=== PATIENT | female | born 1965 | race Caucasian/White ===

== ENCOUNTER 2021-02-23 10:52 | Inpatient (IN) | payer OTHER ==
[2021-02-23 11:45] VITALS: BMI 23.8
[2021-02-23] MEDS ORDERED: NICOTINE POLACRILEX 2 MG GUM BUC PRN (12:05)
[2021-02-23] MEDS ORDERED: MAGNESIUM CITRATE 300 ML BOTTLE PO PRN (12:05)
[2021-02-23] MEDS ORDERED: MAGNESIUM HYDROX 2400MG/30ML ORAL SUSPENSION 30 ML CUP PO PRN (12:05)
[2021-02-23] MEDS ORDERED: MAG HYDROX/AL HYDROX/SIMETH 30 ML UNIT-DOSE CUP PO PRN (12:05)
[2021-02-23] MEDS ORDERED: ONDANSETRON *ODT* 4 MG TABLET SL PRN (12:05)
[2021-02-23] MEDS ORDERED: ACETAMINOPHEN 325 MG TABLET (FP) PO PRN (12:05)
[2021-02-23] MEDS ORDERED: MENTHOL/PHENOL 1 EACH UD MM PRN (12:05)
[2021-02-23] MEDS ORDERED: BISMUTH SUBSALICYLATE 262 MG/15 ML BTL PO PRN (12:05)
[2021-02-23] MEDS: METHOCARBAMOL 500 MG TABLET PO PRN (14:25)
[2021-02-23] MEDS: diazePAM 5 MG TABLET PO SCH ×3 (14:25→22:12)
[2021-02-23] MEDS: PRENATAL VITAMINS W/ FOLIC ACID TABLET (FP) PO SCH (14:26)
[2021-02-23] MEDS: hydrOXYzine PAMOATE 25 MG CAPSULE (FP) PO SCH ×3 (14:26→22:12)
[2021-02-23] MEDS: NICOTINE 7 MG/24 HOURS TOPICAL PATCH TD SCH (14:26)
[2021-02-23] MEDS: ALBUTEROL SO4 HFA INHALER IH SCH ×3 (14:55→22:13)
[2021-02-23 15:46] LABS: HEMATOCRIT 27.6 % (32.4-45.2); HEMOGLOBIN 10.4 GM/dL (10.7-15.3); MCH 35.2 pg (25.7-33.7); MCHC 37.6 g/dl (32.0-36.0); MEAN CELL VOLUME 93.7 fl (80-96); MEAN PLT VOLUME 9.4 fl (7.5-11.1); PLATELET COUNT 217 10^3/uL (134-434); RBC 2.95 M/mm3 (3.60-5.2); RDW 16.5 % (11.6-15.6)
[2021-02-23 15:51] LABS: CALCIUM 8.2 mg/dL (8.5-10.1)
[2021-02-23 15:52] LABS: ALBUMIN 3.2 g/dl (3.4-5.0)
[2021-02-23 15:56] LABS: BILIRUBIN,TOTAL 1.6 mg/dL (0.2-1); CREATININE 1.2 mg/dL (0.55-1.3)
[2021-02-23 16:45] LABS: HIV INTERPRETATION NEGATIVE (NEGATIVE)
[2021-02-23 17:00] LABS: BLOOD UREA NITROGEN 41.9 mg/dL (7-18); TOT PROT 6.9 g/dl (6.4-8.2)
[2021-02-23] MEDS: IBUPROFEN 400 MG TABLET (FP) PO PRN (17:50)
[2021-02-23] MEDS: GABAPENTIN 300 MG CAPSULE PO SCH (22:12)
[2021-02-23] MEDS: THIAMINE HCL 100 MG TABLET (FP) PO SCH (22:12)
[2021-02-23] MEDS: ROSUVASTATIN CA 5 MG TABLET (FP) PO SCH (22:12)
[2021-02-23] MEDS: MELATONIN 5 MG TABLETS PO SCH (22:13)
[2021-02-24] MEDS: ALBUTEROL SO4 HFA INHALER IH SCH ×6 (04:13→21:44)
[2021-02-24] MEDS: IBUPROFEN 400 MG TABLET (FP) PO PRN ×2 (04:17→16:48)
[2021-02-24] MEDS: diazePAM 5 MG TABLET PO SCH ×4 (06:20→23:19)
[2021-02-24] MEDS: hydrOXYzine PAMOATE 25 MG CAPSULE (FP) PO SCH ×5 (06:20→21:43)
[2021-02-24] MEDS: CHLORTHALIDONE 25 MG TABLET PO SCH (08:23)
[2021-02-24] MEDS: LOSARTAN POTASSIUM 50 MG TABLET PO SCH (08:23)
[2021-02-24] MEDS ORDERED: METHADONE HCL 10 MG TABLET PO SCH (08:30)
[2021-02-24] MEDS ORDERED: METHADONE 80 MG, METHADONE 10 MG PO ONE (08:30)
[2021-02-24] MEDS ORDERED: METHADONE HCL 40 MG DISPERSABLE TABLET ONE (08:41)
[2021-02-24] MEDS ORDERED: METHADONE HCL 10 MG TABLET ONE (08:41)
[2021-02-24] MEDS: NICOTINE 7 MG/24 HOURS TOPICAL PATCH TD SCH (10:14)
[2021-02-24] MEDS: GABAPENTIN 300 MG CAPSULE PO SCH ×2 (10:14→21:43)
[2021-02-24] MEDS: PRENATAL VITAMINS W/ FOLIC ACID TABLET (FP) PO SCH (10:14)
[2021-02-24] MEDS: diazePAM 5 MG TABLET PO PRN (14:18)
[2021-02-24] MEDS: ASPIRIN 81 MG CHEWABLE TABLETS PO SCH (14:47)
[2021-02-24] MEDS: ROSUVASTATIN CA 5 MG TABLET (FP) PO SCH (21:43)
[2021-02-24] MEDS: THIAMINE HCL 100 MG TABLET (FP) PO SCH (21:43)
[2021-02-24] MEDS: MELATONIN 5 MG TABLETS PO SCH (21:43)
[2021-02-25] MEDS ORDERED: METHADONE HCL 40 MG DISPERSABLE TABLET ONE (04:13)
[2021-02-25] MEDS ORDERED: METHADONE HCL 10 MG TABLET ONE (04:13)
[2021-02-25] MEDS: ALBUTEROL SO4 HFA INHALER IH SCH ×6 (04:27→23:50)
[2021-02-25] MEDS: METHADONE 80 MG, METHADONE 10 MG PO SCH (05:51)
[2021-02-25] MEDS: diazePAM 5 MG TABLET PO SCH ×3 (05:52→22:24)
[2021-02-25] MEDS: hydrOXYzine PAMOATE 25 MG CAPSULE (FP) PO SCH ×5 (05:53→22:24)
[2021-02-25] MEDS: LOSARTAN POTASSIUM 50 MG TABLET PO SCH (06:41)
[2021-02-25] MEDS: CHLORTHALIDONE 25 MG TABLET PO SCH (06:42)
[2021-02-25] MEDS: PRENATAL VITAMINS W/ FOLIC ACID TABLET (FP) PO SCH (10:33)
[2021-02-25] MEDS: ASPIRIN 81 MG CHEWABLE TABLETS PO SCH (10:33)
[2021-02-25] MEDS: GABAPENTIN 300 MG CAPSULE PO SCH ×2 (10:33→22:24)
[2021-02-25] MEDS: NICOTINE 7 MG/24 HOURS TOPICAL PATCH TD SCH (10:33)
[2021-02-25] MEDS: diazePAM 5 MG TABLET PO PRN ×2 (10:36→17:43)
[2021-02-25 10:59] LABS: IRON SERUM 71 ug/dL (50-175)
[2021-02-25 11:04] LABS: BASO % 1.1 % (0-2.0); EOS % 0.9 % (0-4.5); HEMATOCRIT 28.4 % (32.4-45.2); HEMOGLOBIN 9.6 GM/dL (10.7-15.3); LYMPH % 40.9 % (8-40); MCH 32.2 pg (25.7-33.7); MCHC 33.9 g/dl (32.0-36.0); MEAN CELL VOLUME 94.9 fl (80-96); MEAN PLT VOLUME 9.6 fl (7.5-11.1); MONO % 6.2 % (3.8-10.2); NEUT % 50.9 % (42.8-82.8); PLATELET COUNT 235 10^3/uL (134-434); RBC 2.99 M/mm3 (3.60-5.2); RDW 16.8 % (11.6-15.6); WHITE BLOOD COUNT 7.2 K/mm3 (4.0-10.0)
[2021-02-25] MEDS: METHOCARBAMOL 500 MG TABLET PO PRN (11:50)
[2021-02-25] MEDS: IBUPROFEN 400 MG TABLET (FP) PO PRN (11:50)
[2021-02-25] MEDS: ACETAMINOPHEN 325 MG TABLET (FP) PO PRN (17:49)
[2021-02-25] MEDS: MELATONIN 5 MG TABLETS PO SCH (22:24)
[2021-02-25] MEDS: THIAMINE HCL 100 MG TABLET (FP) PO SCH (22:24)
[2021-02-25] MEDS: ROSUVASTATIN CA 5 MG TABLET (FP) PO SCH (22:24)
[2021-02-26] MEDS ORDERED: METHADONE HCL 10 MG TABLET ONE (03:11)
[2021-02-26] MEDS ORDERED: METHADONE HCL 40 MG DISPERSABLE TABLET ONE (03:11)
[2021-02-26] MEDS: ALBUTEROL SO4 HFA INHALER IH SCH ×6 (04:35→22:12)
[2021-02-26] MEDS: METHADONE 80 MG, METHADONE 10 MG PO SCH (05:39)
[2021-02-26] MEDS: diazePAM 5 MG TABLET PO SCH ×2 (05:39→17:30)
[2021-02-26] MEDS: hydrOXYzine PAMOATE 25 MG CAPSULE (FP) PO SCH ×5 (05:40→22:11)
[2021-02-26] MEDS: CHLORTHALIDONE 25 MG TABLET PO SCH (06:26)
[2021-02-26] MEDS: LOSARTAN POTASSIUM 50 MG TABLET PO SCH (06:26)
[2021-02-26 09:27] LABS: EOS % 0.4 % (0-4.5); HEMATOCRIT 26.1 % (32.4-45.2); LYMPH % 35.1 % (8-40); MCH 32.5 pg (25.7-33.7); MCHC 34.4 g/dl (32.0-36.0); MEAN CELL VOLUME 94.7 fl (80-96); MEAN PLT VOLUME 8.8 fl (7.5-11.1); MONO % 5.7 % (3.8-10.2); NEUT % 57.8 % (42.8-82.8); PLATELET COUNT 228 10^3/uL (134-434); RBC 2.76 M/mm3 (3.60-5.2); RDW 16.7 % (11.6-15.6); WHITE BLOOD COUNT 6.4 K/mm3 (4.0-10.0)
[2021-02-26] MEDS: ASPIRIN 81 MG CHEWABLE TABLETS PO SCH (09:37)
[2021-02-26] MEDS: PRENATAL VITAMINS W/ FOLIC ACID TABLET (FP) PO SCH (09:37)
[2021-02-26] MEDS: diazePAM 5 MG TABLET PO PRN (09:37)
[2021-02-26] MEDS: GABAPENTIN 300 MG CAPSULE PO SCH ×2 (09:37→22:11)
[2021-02-26 09:52] LABS: CREATININE 1.2 mg/dL (0.55-1.3)
[2021-02-26 09:54] LABS: TOT PROT 6.6 g/dl (6.4-8.2)
[2021-02-26 09:55] LABS: BILIRUBIN,TOTAL 0.8 mg/dL (0.2-1)
[2021-02-26 09:57] LABS: BLOOD UREA NITROGEN 16.7 mg/dL (7-18)
[2021-02-26] MEDS: NICOTINE 7 MG/24 HOURS TOPICAL PATCH TD SCH (10:29)
[2021-02-26 11:02] LABS: ANISOCYTOSIS 1+; PLATELET ESTIMATE NORMAL; TARGET CELLS 1+
[2021-02-26] MEDS: MELATONIN 5 MG TABLETS PO SCH (22:11)
[2021-02-26] MEDS: ROSUVASTATIN CA 5 MG TABLET (FP) PO SCH (22:11)
[2021-02-26] MEDS: THIAMINE HCL 100 MG TABLET (FP) PO SCH (22:11)
[2021-02-27] MEDS: ALBUTEROL SO4 HFA INHALER IH SCH ×3 (02:35→09:35)
[2021-02-27] MEDS: ACETAMINOPHEN 325 MG TABLET (FP) PO PRN (02:54)
[2021-02-27] MEDS ORDERED: METHADONE HCL 10 MG TABLET ONE (04:09)
[2021-02-27] MEDS ORDERED: METHADONE HCL 40 MG DISPERSABLE TABLET ONE (04:10)
[2021-02-27] MEDS: METHADONE 80 MG, METHADONE 10 MG PO SCH (05:47)
[2021-02-27] MEDS: hydrOXYzine PAMOATE 25 MG CAPSULE (FP) PO SCH ×2 (05:47→09:35)
[2021-02-27] MEDS ORDERED: diazePAM 5 MG TABLET PO ONE (06:00)
[2021-02-27] MEDS: CHLORTHALIDONE 25 MG TABLET PO SCH (08:00)
[2021-02-27] MEDS: LOSARTAN POTASSIUM 50 MG TABLET PO SCH (08:00)
[2021-02-27 09:22] VITALS: BP 120/93; PULSE 110; TEMP 97.9
[2021-02-27] MEDS: PRENATAL VITAMINS W/ FOLIC ACID TABLET (FP) PO SCH (09:34)
[2021-02-27] MEDS: ASPIRIN 81 MG CHEWABLE TABLETS PO SCH (09:34)
[2021-02-27] MEDS: NICOTINE 7 MG/24 HOURS TOPICAL PATCH TD SCH (09:35)
[2021-02-27] MEDS: GABAPENTIN 300 MG CAPSULE PO SCH (09:35)
== END 2021-02-27 10:07 | disposition home or self-care (01) | DRG 773 ==
LOC: YASAS 10:52 → Y6N 12:45
PROVIDERS: ADMIT Allergy & Immunology; ATTEND Allergy & Immunology
PROC: HZ2ZZZZ Detoxification Services for Substance Abuse Treatment (ICD-10-PCS; principal; 2021-02-23)
DX: F10.230 Alcohol dependence with withdrawal, uncomplicated (principal); F13.230 Sedative, hypnotic or anxiolytic dependence with withdrawal, uncomplicated; F11.20 Opioid dependence, uncomplicated; F17.210 Nicotine dependence, cigarettes, uncomplicated; F19.280 Other psychoactive substance dependence with psychoactive substance-induced anxiety disorder; F19.282 Other psychoactive substance dependence with psychoactive substance-induced sleep disorder; F32.9 Major depressive disorder, single episode, unspecified; D50.9 Iron deficiency anemia, unspecified; J45.909 Unspecified asthma, uncomplicated; J42 Unspecified chronic bronchitis; E80.6 Other disorders of bilirubin metabolism; L03.116 Cellulitis of left lower limb; R74.8 Abnormal levels of other serum enzymes; R78.9 Finding of unspecified substance, not normally found in blood; B18.2 Chronic viral hepatitis C
CPT/HCPCS: 36415; 71046-TC-FY; 80053; 82607; 82962; 83540; 85025; 85027; 86780; 87389; 93005; 93010; C9803; U0003; U0005

== ENCOUNTER 2021-03-16 10:01 | Inpatient (IN) | payer OTHER ==
[2021-03-16 11:42] VITALS: BMI 24.1
[2021-03-16] MEDS ORDERED: MENTHOL/PHENOL 1 EACH UD MM PRN (12:04)
[2021-03-16] MEDS ORDERED: MAGNESIUM HYDROX 2400MG/30ML ORAL SUSPENSION 30 ML CUP PO PRN (12:04)
[2021-03-16] MEDS ORDERED: ONDANSETRON *ODT* 4 MG TABLET SL PRN (12:04)
[2021-03-16] MEDS ORDERED: BISMUTH SUBSALICYLATE 262 MG/15 ML BTL PO PRN (12:04)
[2021-03-16] MEDS ORDERED: MAGNESIUM CITRATE 300 ML BOTTLE PO PRN (12:04)
[2021-03-16] MEDS ORDERED: NICOTINE POLACRILEX 2 MG GUM BUC PRN (12:04)
[2021-03-16] MEDS ORDERED: MAG HYDROX/AL HYDROX/SIMETH 30 ML UNIT-DOSE CUP PO PRN (12:04)
[2021-03-16] MEDS ORDERED: ACETAMINOPHEN 325 MG TABLET (FP) PO PRN ×2 (12:04)
[2021-03-16] MEDS ORDERED: hydrOXYzine PAMOATE 25 MG CAPSULE (FP) PO SCH (14:00)
[2021-03-16] MEDS: ALBUTEROL SO4 HFA INHALER IH SCH ×3 (14:38→22:30)
[2021-03-16] MEDS: LORazepam 1 MG TABLET PO PRN ×2 (14:38→20:55)
[2021-03-16] MEDS: NICOTINE 7 MG/24 HOURS TOPICAL PATCH TD SCH (14:38)
[2021-03-16 17:10] LABS: HEMATOCRIT 28.4 % (32.4-45.2); HEMOGLOBIN 9.6 GM/dL (10.7-15.3); MCH 32.7 pg (25.7-33.7); MCHC 33.9 g/dl (32.0-36.0); MEAN CELL VOLUME 96.4 fl (80-96); MEAN PLT VOLUME 8.5 fl (7.5-11.1); PLATELET COUNT 212 10^3/uL (134-434); RBC 2.94 M/mm3 (3.60-5.2); RDW 17.8 % (11.6-15.6); WHITE BLOOD COUNT 5.9 K/mm3 (4.0-10.0)
[2021-03-16 17:15] LABS: ALBUMIN 3.8 g/dl (3.4-5.0); BLOOD UREA NITROGEN 19.3 mg/dL (7-18); CALCIUM 8.9 mg/dL (8.5-10.1)
[2021-03-16 17:18] LABS: CREATININE 1.2 mg/dL (0.55-1.3)
[2021-03-16] MEDS: LORazepam 2 MG TABLET PO SCH ×2 (17:18→22:31)
[2021-03-16 17:20] LABS: BILIRUBIN,TOTAL 1.5 mg/dL (0.2-1); TOT PROT 7.4 g/dl (6.4-8.2)
[2021-03-16] MEDS: hydrOXYzine PAMOATE 25 MG CAPSULE (FP) PO PRN (22:31)
[2021-03-16] MEDS: MELATONIN 5 MG TABLETS PO SCH (22:31)
[2021-03-16] MEDS: METHOCARBAMOL 500 MG TABLET PO PRN (22:31)
[2021-03-16] MEDS: THIAMINE HCL 100 MG TABLET (FP) PO SCH (22:31)
[2021-03-16] MEDS: ROSUVASTATIN CA 5 MG TABLET (FP) PO SCH (22:35)
[2021-03-17] MEDS: LORazepam 1 MG TABLET PO PRN (03:13)
[2021-03-17] MEDS: ALBUTEROL SO4 HFA INHALER IH SCH ×6 (03:50→22:51)
[2021-03-17] MEDS: LORazepam 2 MG TABLET PO SCH ×4 (05:27→22:18)
[2021-03-17] MEDS: hydrOXYzine PAMOATE 25 MG CAPSULE (FP) PO PRN ×3 (05:30→23:54)
[2021-03-17] MEDS: CHLORTHALIDONE 25 MG TABLET PO SCH (06:37)
[2021-03-17] MEDS: LOSARTAN POTASSIUM 50 MG TABLET PO SCH (06:38)
[2021-03-17] MEDS: PRENATAL VITAMINS W/ FOLIC ACID TABLET (FP) PO SCH (10:26)
[2021-03-17] MEDS: ASPIRIN 81 MG CHEWABLE TABLETS PO SCH (10:26)
[2021-03-17] MEDS: TIOTROPIUM BROMIDE 2.5 MCG (SPIRIVA) RESPIMAT INHALER IH SCH (10:28)
[2021-03-17] MEDS: NICOTINE 7 MG/24 HOURS TOPICAL PATCH TD SCH (10:28)
[2021-03-17] MEDS ORDERED: methaDONE HCL 10 MG TABLET PO ONE (12:01)
[2021-03-17] MEDS ORDERED: methaDONE 80 MG, methaDONE 10 MG PO ONE (12:17)
[2021-03-17] MEDS ORDERED: methaDONE HCL 10 MG TABLET ONE (13:08)
[2021-03-17] MEDS ORDERED: methaDONE HCL 40 MG DISPERSABLE TABLET ONE (13:08)
[2021-03-17] MEDS: THIAMINE HCL 100 MG TABLET (FP) PO SCH (22:18)
[2021-03-17] MEDS: MELATONIN 5 MG TABLETS PO SCH (22:18)
[2021-03-17] MEDS: ROSUVASTATIN CA 5 MG TABLET (FP) PO SCH (22:18)
[2021-03-17] MEDS: METHOCARBAMOL 500 MG TABLET PO PRN (23:54)
[2021-03-18] MEDS: ALBUTEROL SO4 HFA INHALER IH SCH ×6 (01:45→22:56)
[2021-03-18] MEDS: LORazepam 1 MG TABLET PO PRN ×3 (03:50→19:45)
[2021-03-18] MEDS ORDERED: methaDONE HCL 10 MG TABLET ONE (04:54)
[2021-03-18] MEDS ORDERED: methaDONE HCL 40 MG DISPERSABLE TABLET ONE (04:55)
[2021-03-18] MEDS ORDERED: methaDONE HCL 40 MG DISPERSABLE TABLET PO SCH (06:00)
[2021-03-18] MEDS: methaDONE 80 MG, methaDONE 10 MG PO SCH (06:24)
[2021-03-18] MEDS: hydrOXYzine PAMOATE 25 MG CAPSULE (FP) PO PRN (06:25)
[2021-03-18] MEDS: LOSARTAN POTASSIUM 50 MG TABLET PO SCH (06:25)
[2021-03-18] MEDS: CHLORTHALIDONE 25 MG TABLET PO SCH (06:26)
[2021-03-18] MEDS: LORazepam 1 MG TABLET PO SCH ×4 (06:26→22:55)
[2021-03-18] MEDS: ASPIRIN 81 MG CHEWABLE TABLETS PO SCH (10:07)
[2021-03-18] MEDS: PRENATAL VITAMINS W/ FOLIC ACID TABLET (FP) PO SCH (10:07)
[2021-03-18 10:08] LABS: BASO % 1.1 % (0-2.0); EOS % 1.1 % (0-4.5); HEMATOCRIT 29.7 % (32.4-45.2); LYMPH % 31.3 % (8-40); MCH 32.7 pg (25.7-33.7); MCHC 33.7 g/dl (32.0-36.0); MONO % 7.1 % (3.8-10.2); NEUT % 59.4 % (42.8-82.8); PLATELET COUNT 207 10^3/uL (134-434); RBC 3.06 M/mm3 (3.60-5.2); RDW 18.4 % (11.6-15.6); WHITE BLOOD COUNT 5.6 K/mm3 (4.0-10.0)
[2021-03-18] MEDS: NICOTINE 7 MG/24 HOURS TOPICAL PATCH TD SCH (10:20)
[2021-03-18] MEDS: TIOTROPIUM BROMIDE 2.5 MCG (SPIRIVA) RESPIMAT INHALER IH SCH (10:20)
[2021-03-18 10:25] LABS: BLOOD UREA NITROGEN 16.4 mg/dL (7-18); CALCIUM 9.6 mg/dL (8.5-10.1)
[2021-03-18 10:29] LABS: CREATININE 1.1 mg/dL (0.55-1.3)
[2021-03-18] MEDS: IBUPROFEN 400 MG TABLET (FP) PO PRN (18:23)
[2021-03-18] MEDS: MELATONIN 5 MG TABLETS PO SCH (22:55)
[2021-03-18] MEDS: THIAMINE HCL 100 MG TABLET (FP) PO SCH (22:55)
[2021-03-18] MEDS: ROSUVASTATIN CA 5 MG TABLET (FP) PO SCH (22:56)
[2021-03-19] MEDS ORDERED: LORazepam 0.5 MG TABLET PO PRN
[2021-03-19] MEDS: ALBUTEROL SO4 HFA INHALER IH SCH ×6 (02:15→22:09)
[2021-03-19] MEDS ORDERED: methaDONE HCL 10 MG TABLET ONE (04:46)
[2021-03-19] MEDS ORDERED: methaDONE HCL 40 MG DISPERSABLE TABLET ONE (04:47)
[2021-03-19] MEDS: LORazepam 0.5 MG TABLET PO SCH ×4 (06:23→22:10)
[2021-03-19] MEDS: methaDONE 80 MG, methaDONE 10 MG PO SCH (06:24)
[2021-03-19] MEDS: CHLORTHALIDONE 25 MG TABLET PO SCH (06:25)
[2021-03-19] MEDS: LOSARTAN POTASSIUM 50 MG TABLET PO SCH (06:25)
[2021-03-19] MEDS: TIOTROPIUM BROMIDE 2.5 MCG (SPIRIVA) RESPIMAT INHALER IH SCH (10:07)
[2021-03-19] MEDS: NICOTINE 7 MG/24 HOURS TOPICAL PATCH TD SCH (10:07)
[2021-03-19] MEDS: ASPIRIN 81 MG CHEWABLE TABLETS PO SCH (10:10)
[2021-03-19] MEDS: IBUPROFEN 400 MG TABLET (FP) PO PRN ×2 (10:11→19:41)
[2021-03-19] MEDS: PRENATAL VITAMINS W/ FOLIC ACID TABLET (FP) PO SCH (10:13)
[2021-03-19] MEDS: hydrOXYzine PAMOATE 25 MG CAPSULE (FP) PO PRN (22:09)
[2021-03-19] MEDS: ROSUVASTATIN CA 5 MG TABLET (FP) PO SCH (22:09)
[2021-03-19] MEDS: MELATONIN 5 MG TABLETS PO SCH (22:09)
[2021-03-19] MEDS: THIAMINE HCL 100 MG TABLET (FP) PO SCH (22:09)
[2021-03-20] MEDS: ALBUTEROL SO4 HFA INHALER IH SCH ×3 (02:13→09:43)
[2021-03-20] MEDS: hydrOXYzine PAMOATE 25 MG CAPSULE (FP) PO PRN (02:56)
[2021-03-20] MEDS: METHOCARBAMOL 500 MG TABLET PO PRN (02:57)
[2021-03-20] MEDS ORDERED: methaDONE HCL 10 MG TABLET ONE (04:36)
[2021-03-20] MEDS ORDERED: methaDONE HCL 40 MG DISPERSABLE TABLET ONE (04:37)
[2021-03-20] MEDS ORDERED: LORazepam 0.5 MG TABLET PO ONE (05:00)
[2021-03-20] MEDS: CHLORTHALIDONE 25 MG TABLET PO SCH (06:34)
[2021-03-20] MEDS: methaDONE 80 MG, methaDONE 10 MG PO SCH (06:35)
[2021-03-20] MEDS: LOSARTAN POTASSIUM 50 MG TABLET PO SCH (06:37)
[2021-03-20 08:55] VITALS: BP 117/89; PULSE 111; TEMP 97.3
[2021-03-20] MEDS: PRENATAL VITAMINS W/ FOLIC ACID TABLET (FP) PO SCH (09:43)
[2021-03-20] MEDS: TIOTROPIUM BROMIDE 2.5 MCG (SPIRIVA) RESPIMAT INHALER IH SCH (09:43)
[2021-03-20] MEDS: ASPIRIN 81 MG CHEWABLE TABLETS PO SCH (09:43)
[2021-03-20] MEDS: NICOTINE 7 MG/24 HOURS TOPICAL PATCH TD SCH (09:43)
== END 2021-03-20 10:53 | disposition home or self-care (01) | DRG 773 ==
LOC: YASAS 10:01 → Y3N 12:24
PROVIDERS: ADMIT Allergy & Immunology; ATTEND Allergy & Immunology
PROC: HZ2ZZZZ Detoxification Services for Substance Abuse Treatment (ICD-10-PCS; principal; 2021-03-16)
DX: F10.230 Alcohol dependence with withdrawal, uncomplicated (principal); F11.20 Opioid dependence, uncomplicated; F13.20 Sedative, hypnotic or anxiolytic dependence, uncomplicated; F17.210 Nicotine dependence, cigarettes, uncomplicated; F19.282 Other psychoactive substance dependence with psychoactive substance-induced sleep disorder; F19.280 Other psychoactive substance dependence with psychoactive substance-induced anxiety disorder; F19.24 Other psychoactive substance dependence with psychoactive substance-induced mood disorder; E87.1 Hypo-osmolality and hyponatremia; L03.116 Cellulitis of left lower limb; D50.9 Iron deficiency anemia, unspecified; E78.5 Hyperlipidemia, unspecified; E80.6 Other disorders of bilirubin metabolism; I10 Essential (primary) hypertension; R74.01 Elevation of levels of liver transaminase levels; F41.9 Anxiety disorder, unspecified
CPT/HCPCS: 36415; 80048; 80053; 85025; 85027; 86780; C9803; U0003; U0005

== ENCOUNTER 2021-03-29 12:53 | Inpatient (IN) | payer OTHER ==
[2021-03-29] MEDS ORDERED: ACETAMINOPHEN 325 MG TABLET (FP) PO PRN ×2 (15:15)
[2021-03-29] MEDS ORDERED: MENTHOL/PHENOL 1 EACH UD MM PRN (15:15)
[2021-03-29] MEDS ORDERED: IBUPROFEN 400 MG TABLET (FP) PO PRN (15:15)
[2021-03-29] MEDS ORDERED: ONDANSETRON *ODT* 4 MG TABLET SL PRN (15:15)
[2021-03-29] MEDS ORDERED: MAGNESIUM HYDROX 2400MG/30ML ORAL SUSPENSION 30 ML CUP PO PRN (15:15)
[2021-03-29] MEDS ORDERED: BISMUTH SUBSALICYLATE 524 MG/30 ML PO PRN (15:15)
[2021-03-29] MEDS ORDERED: MAGNESIUM CITRATE 300 ML BOTTLE PO PRN (15:15)
[2021-03-29] MEDS ORDERED: NICOTINE POLACRILEX 2 MG GUM BUC PRN (15:15)
[2021-03-29] MEDS ORDERED: MAG HYDROX/AL HYDROX/SIMETH 30 ML UNIT-DOSE CUP PO PRN (15:15)
[2021-03-29] MEDS ORDERED: METHOCARBAMOL 500 MG TABLET PO PRN (15:15)
[2021-03-29 15:26] VITALS: BMI 24.3
[2021-03-29] MEDS: diazePAM 5 MG TABLET PO SCH ×2 (17:38→22:05)
[2021-03-29] MEDS: hydrOXYzine PAMOATE 25 MG CAPSULE (FP) PO SCH ×2 (17:39→22:05)
[2021-03-29] MEDS: ALBUTEROL SO4 HFA INHALER IH SCH ×3 (17:39→22:59)
[2021-03-29] MEDS: MELATONIN 5 MG TABLETS PO SCH (22:05)
[2021-03-29] MEDS: THIAMINE HCL 100 MG TABLET (FP) PO SCH (22:05)
[2021-03-30] MEDS: ALBUTEROL SO4 HFA INHALER IH SCH ×4 (06:10→20:15)
[2021-03-30] MEDS: diazePAM 5 MG TABLET PO SCH ×4 (06:12→22:21)
[2021-03-30] MEDS: hydrOXYzine PAMOATE 25 MG CAPSULE (FP) PO SCH (06:12)
[2021-03-30] MEDS: LOSARTAN POTASSIUM 50 MG TABLET PO SCH (06:48)
[2021-03-30] MEDS ORDERED: methaDONE HCL 10 MG TABLET PO SCH (08:45)
[2021-03-30] MEDS ORDERED: methaDONE HCL 40 MG DISPERSABLE TABLET ONE (09:25)
[2021-03-30] MEDS ORDERED: methaDONE HCL 10 MG TABLET ONE (09:25)
[2021-03-30] MEDS: methaDONE 80 MG, methaDONE 10 MG PO SCH (09:48)
[2021-03-30] MEDS: ASPIRIN 81 MG CHEWABLE TABLETS PO SCH (09:49)
[2021-03-30] MEDS: NICOTINE 7 MG/24 HOURS TOPICAL PATCH TD SCH (09:50)
[2021-03-30] MEDS: PRENATAL VITAMINS W/ FOLIC ACID TABLET (FP) PO SCH (09:50)
[2021-03-30 10:30] LABS: EOS % 1.5 % (0-4.5); HEMATOCRIT 31.5 % (32.4-45.2); HEMOGLOBIN 11.4 GM/dL (10.7-15.3); LYMPH % 43.8 % (8-40); MCH 34.1 pg (25.7-33.7); MCHC 36.2 g/dl (32.0-36.0); MEAN CELL VOLUME 94.2 fl (80-96); MEAN PLT VOLUME 7.7 fl (7.5-11.1); MONO % 6.3 % (3.8-10.2); NEUT % 47.4 % (42.8-82.8); PLATELET COUNT 295 10^3/uL (134-434); RBC 3.34 M/mm3 (3.60-5.2); RDW 17.6 % (11.6-15.6); WHITE BLOOD COUNT 5.3 K/mm3 (4.0-10.0)
[2021-03-30 10:55] LABS: CHLORIDE 92 mmol/L (98-107); SODIUM 136 mmol/L (136-145)
[2021-03-30 11:18] LABS: ALBUMIN 3.6 g/dl (3.4-5.0); ANION GAP 13 MMOL/L (8-16); CALCIUM 8.4 mg/dL (8.5-10.1); CO2 31 mmol/L (21-32); GLUCOSE,RANDOM 135 mg/dL (74-106)
[2021-03-30 11:21] LABS: CREATININE 1.1 mg/dL (0.55-1.3)
[2021-03-30 11:23] LABS: BILIRUBIN,TOTAL 0.7 mg/dL (0.2-1)
[2021-03-30 11:35] LABS: ALK PHOS 301 U/L (45-117); BLOOD UREA NITROGEN 16.4 mg/dL (7-18); TOT PROT 7.3 g/dl (6.4-8.2)
[2021-03-30] MEDS: THIAMINE HCL 100 MG TABLET (FP) PO SCH (22:21)
[2021-03-30] MEDS: ROSUVASTATIN CA 5 MG TABLET (FP) PO SCH (22:21)
[2021-03-30] MEDS: MELATONIN 5 MG TABLETS PO SCH (22:22)
[2021-03-31] MEDS ORDERED: methaDONE HCL 10 MG TABLET ONE (04:15)
[2021-03-31] MEDS ORDERED: methaDONE HCL 40 MG DISPERSABLE TABLET ONE (04:15)
[2021-03-31] MEDS: ALBUTEROL SO4 HFA INHALER IH SCH ×4 (06:02→22:12)
[2021-03-31] MEDS: methaDONE 80 MG, methaDONE 10 MG PO SCH (06:02)
[2021-03-31] MEDS: LOSARTAN POTASSIUM 50 MG TABLET PO SCH (06:03)
[2021-03-31] MEDS: diazePAM 5 MG TABLET PO SCH ×3 (06:03→22:11)
[2021-03-31] MEDS: hydrOXYzine PAMOATE 25 MG CAPSULE (FP) PO PRN (06:05)
[2021-03-31] MEDS: NICOTINE 7 MG/24 HOURS TOPICAL PATCH TD SCH (10:19)
[2021-03-31] MEDS: PRENATAL VITAMINS W/ FOLIC ACID TABLET (FP) PO SCH (10:19)
[2021-03-31] MEDS: ASPIRIN 81 MG CHEWABLE TABLETS PO SCH (10:19)
[2021-03-31] MEDS: diazePAM 5 MG TABLET PO PRN ×2 (10:21→17:32)
[2021-03-31] MEDS: MELATONIN 5 MG TABLETS PO SCH (22:11)
[2021-03-31] MEDS: ROSUVASTATIN CA 5 MG TABLET (FP) PO SCH (22:11)
[2021-03-31] MEDS: THIAMINE HCL 100 MG TABLET (FP) PO SCH (22:11)
[2021-04-01] MEDS: diazePAM 5 MG TABLET PO PRN ×2 (03:03→10:06)
[2021-04-01] MEDS ORDERED: methaDONE HCL 10 MG TABLET ONE (04:18)
[2021-04-01] MEDS ORDERED: methaDONE HCL 40 MG DISPERSABLE TABLET ONE (04:18)
[2021-04-01] MEDS: ALBUTEROL SO4 HFA INHALER IH SCH ×4 (06:05→20:30)
[2021-04-01] MEDS: diazePAM 5 MG TABLET PO SCH ×2 (06:06→17:10)
[2021-04-01] MEDS: LOSARTAN POTASSIUM 50 MG TABLET PO SCH (06:06)
[2021-04-01] MEDS: methaDONE 80 MG, methaDONE 10 MG PO SCH (06:06)
[2021-04-01] MEDS: ASPIRIN 81 MG CHEWABLE TABLETS PO SCH (09:02)
[2021-04-01] MEDS: PRENATAL VITAMINS W/ FOLIC ACID TABLET (FP) PO SCH (09:03)
[2021-04-01] MEDS: NICOTINE 7 MG/24 HOURS TOPICAL PATCH TD SCH (09:06)
[2021-04-01] MEDS: hydrOXYzine PAMOATE 25 MG CAPSULE (FP) PO PRN ×2 (17:11→22:12)
[2021-04-01] MEDS: THIAMINE HCL 100 MG TABLET (FP) PO SCH (22:12)
[2021-04-01] MEDS: ROSUVASTATIN CA 5 MG TABLET (FP) PO SCH (22:12)
[2021-04-01] MEDS: MELATONIN 5 MG TABLETS PO SCH (22:13)
[2021-04-02] MEDS ORDERED: methaDONE HCL 10 MG TABLET ONE (04:44)
[2021-04-02] MEDS ORDERED: methaDONE HCL 40 MG DISPERSABLE TABLET ONE (04:44)
[2021-04-02] MEDS: methaDONE 80 MG, methaDONE 10 MG PO SCH (05:37)
[2021-04-02] MEDS: ALBUTEROL SO4 HFA INHALER IH SCH ×2 (05:39→10:00)
[2021-04-02] MEDS ORDERED: diazePAM 5 MG TABLET PO ONE (06:00)
[2021-04-02] MEDS: LOSARTAN POTASSIUM 50 MG TABLET PO SCH (06:01)
[2021-04-02] MEDS: NICOTINE 7 MG/24 HOURS TOPICAL PATCH TD SCH (09:03)
[2021-04-02] MEDS: PRENATAL VITAMINS W/ FOLIC ACID TABLET (FP) PO SCH (09:03)
[2021-04-02] MEDS: ASPIRIN 81 MG CHEWABLE TABLETS PO SCH (09:03)
[2021-04-02] MEDS: hydrOXYzine PAMOATE 25 MG CAPSULE (FP) PO PRN (10:24)
[2021-04-02 15:43] VITALS: BP 144/87; PULSE 92; TEMP 98.1
== END 2021-04-02 16:14 | disposition other institution (70) | DRG 773 ==
LOC: YASAS 12:53 → Y6N 16:53
PROVIDERS: ADMIT Allergy & Immunology; ATTEND Allergy & Immunology
PROC: HZ2ZZZZ Detoxification Services for Substance Abuse Treatment (ICD-10-PCS; principal; 2021-03-29)
DX: F10.230 Alcohol dependence with withdrawal, uncomplicated (principal); F11.20 Opioid dependence, uncomplicated; F13.20 Sedative, hypnotic or anxiolytic dependence, uncomplicated; F17.213 Nicotine dependence, cigarettes, with withdrawal; I10 Essential (primary) hypertension; I25.10 Atherosclerotic heart disease of native coronary artery without angina pectoris; J45.20 Mild intermittent asthma, uncomplicated; J42 Unspecified chronic bronchitis; E78.1 Pure hyperglyceridemia; B18.2 Chronic viral hepatitis C; M19.90 Unspecified osteoarthritis, unspecified site; Z56.0 Unemployment, unspecified
CPT/HCPCS: 36415; 80048; 80053; 85025; 86780; 93005; 93010; C9803; U0003; U0005

== ENCOUNTER 2021-04-02 17:04 | Inpatient (IN) | payer OTHER ==
[~2021-04-02 17:04] MED LIST: ACETAMINOPHEN 325 MG TABLET (FP) PO PRN; IBUPROFEN 400 MG TABLET (FP) PO PRN; LOPERAMIDE HCL 2 MG CAPSULE PO PRN; MAG HYDROX/AL HYDROX/SIMETH 30 ML UNIT-DOSE CUP PO PRN; MAGNESIUM CITRATE 300 ML BOTTLE PO PRN; MAGNESIUM HYDROX 2400MG/30ML ORAL SUSPENSION 30 ML CUP PO PRN; P-EPHED 60MG/TRIPROLIDI 2.5MG TABLET PO PRN; guaiFENesin 200 MG/10 ML 10 ML UNIT-DOSE CUPS PO PRN
[2021-04-02] MEDS: MELATONIN 5 MG TABLETS PO SCH (21:48)
[2021-04-02] MEDS: THIAMINE HCL 100 MG TABLET (FP) PO SCH (21:48)
[2021-04-02] MEDS: hydrOXYzine PAMOATE 25 MG CAPSULE (FP) PO SCH (21:49)
[2021-04-02] MEDS: ROSUVASTATIN CA 5 MG TABLET (FP) PO SCH (23:07)
[2021-04-03] MEDS ORDERED: methaDONE HCL 40 MG DISPERSABLE TABLET PO SCH (05:00)
[2021-04-03] MEDS: hydrOXYzine PAMOATE 25 MG CAPSULE (FP) PO SCH ×8 (06:15→21:27)
[2021-04-03] MEDS: LOSARTAN POTASSIUM 50 MG TABLET PO SCH (06:21)
[2021-04-03] MEDS ORDERED: methaDONE HCL 40 MG DISPERSABLE TABLET ONE (06:36)
[2021-04-03] MEDS ORDERED: methaDONE HCL 10 MG TABLET ONE (06:36)
[2021-04-03] MEDS: methaDONE 80 MG, methaDONE 10 MG PO SCH (07:17)
[2021-04-03] MEDS: ASPIRIN 81 MG CHEWABLE TABLETS PO SCH (10:47)
[2021-04-03] MEDS: PRENATAL VITAMINS W/ FOLIC ACID TABLET (FP) PO SCH (10:47)
[2021-04-03] MEDS: NICOTINE 7 MG/24 HOURS TOPICAL PATCH TD SCH (10:48)
[2021-04-03] MEDS: ALBUTEROL SO4 HFA INHALER IH PRN (10:49)
[2021-04-03] MEDS ORDERED: PT OWN MED DRAWER 7, Y5N ONE (21:09)
[2021-04-03] MEDS: MELATONIN 5 MG TABLETS PO SCH (21:27)
[2021-04-03] MEDS: THIAMINE HCL 100 MG TABLET (FP) PO SCH (21:27)
[2021-04-03] MEDS: ROSUVASTATIN CA 5 MG TABLET (FP) PO SCH (21:27)
[2021-04-04] MEDS ORDERED: methaDONE HCL 40 MG DISPERSABLE TABLET ONE (05:10)
[2021-04-04] MEDS ORDERED: methaDONE HCL 10 MG TABLET ONE (05:10)
[2021-04-04] MEDS: LOSARTAN POTASSIUM 50 MG TABLET PO SCH (06:21)
[2021-04-04] MEDS: hydrOXYzine PAMOATE 25 MG CAPSULE (FP) PO SCH ×4 (06:21→14:23)
[2021-04-04] MEDS: methaDONE 80 MG, methaDONE 10 MG PO SCH (06:22)
[2021-04-04 08:13] VITALS: TEMP 97.1
[2021-04-04] MEDS: NICOTINE 7 MG/24 HOURS TOPICAL PATCH TD SCH (10:17)
[2021-04-04] MEDS: PRENATAL VITAMINS W/ FOLIC ACID TABLET (FP) PO SCH (10:17)
[2021-04-04] MEDS: ASPIRIN 81 MG CHEWABLE TABLETS PO SCH (10:18)
[2021-04-04] MEDS ORDERED: hydrOXYzine PAMOATE 25 MG CAPSULE (FP) PO PRN (15:41)
[2021-04-04] MEDS ORDERED: PT OWN MED DRAWER 7, Y5N ONE (20:47)
[2021-04-04] MEDS: MELATONIN 5 MG TABLETS PO SCH (21:04)
[2021-04-04] MEDS: THIAMINE HCL 100 MG TABLET (FP) PO SCH (21:04)
[2021-04-04] MEDS: ROSUVASTATIN CA 5 MG TABLET (FP) PO SCH (21:04)
[2021-04-05] MEDS ORDERED: methaDONE HCL 40 MG DISPERSABLE TABLET ONE (03:13)
[2021-04-05] MEDS ORDERED: methaDONE HCL 10 MG TABLET ONE (03:13)
[2021-04-05] MEDS: LOSARTAN POTASSIUM 50 MG TABLET PO SCH (06:19)
[2021-04-05] MEDS: methaDONE 80 MG, methaDONE 10 MG PO SCH (06:19)
[2021-04-05 07:18] VITALS: BP 147/86; PULSE 77
[2021-04-05] MEDS: ASPIRIN 81 MG CHEWABLE TABLETS PO SCH (09:42)
[2021-04-05] MEDS: NICOTINE 7 MG/24 HOURS TOPICAL PATCH TD SCH (09:43)
[2021-04-05] MEDS: PRENATAL VITAMINS W/ FOLIC ACID TABLET (FP) PO SCH (09:44)
[2021-04-05] MEDS: ALBUTEROL SO4 HFA INHALER IH PRN (09:58)
== END 2021-04-05 10:50 | disposition home or self-care (01) | DRG 772 ==
LOC: YASAS 17:04 → Y5N 17:05
PROVIDERS: ADMIT Allergy & Immunology; ATTEND Allergy & Immunology
PROC: HZ42ZZZ Group Counseling for Substance Abuse Treatment, Cognitive-Behavioral (ICD-10-PCS; principal; 2021-04-02)
DX: F10.20 Alcohol dependence, uncomplicated (principal); F11.20 Opioid dependence, uncomplicated; F13.20 Sedative, hypnotic or anxiolytic dependence, uncomplicated; F17.210 Nicotine dependence, cigarettes, uncomplicated; I10 Essential (primary) hypertension; J45.20 Mild intermittent asthma, uncomplicated; J42 Unspecified chronic bronchitis; E78.1 Pure hyperglyceridemia; B18.2 Chronic viral hepatitis C

== ENCOUNTER 2021-12-20 01:31 | Inpatient (IN) | payer OTHER ==
[2021-12-20 02:36] VITALS: BMI 25.2
[2021-12-20] MEDS ORDERED: BISMUTH SUBSALICYLATE 524 MG/30 ML PO PRN (03:23)
[2021-12-20] MEDS ORDERED: DICYCLOMINE HCL 10 MG CAPSULE PO PRN (03:23)
[2021-12-20] MEDS ORDERED: MAG HYDROX/AL HYDROX/SIMETH 30 ML UNIT-DOSE CUP PO PRN (03:23)
[2021-12-20] MEDS ORDERED: NICOTINE POLACRILEX 2 MG GUM BUC PRN (03:23)
[2021-12-20] MEDS ORDERED: MAGNESIUM CITRATE 300 ML BOTTLE PO PRN (03:23)
[2021-12-20] MEDS ORDERED: BENZOCAINE/MENTHOL (CHLORASEPTIC ) LOZENGE MM PRN (03:23)
[2021-12-20] MEDS ORDERED: LOPERAMIDE HCL 2 MG CAPSULE PO PRN (03:23)
[2021-12-20] MEDS ORDERED: ACETAMINOPHEN 325 MG TABLET (FP) PO PRN (03:23)
[2021-12-20] MEDS ORDERED: MAGNESIUM HYDROX 2400MG/30ML ORAL SUSPENSION 30 ML CUP PO PRN (03:23)
[2021-12-20] MEDS ORDERED: ONDANSETRON *ODT* 4 MG TABLET SL PRN (03:23)
[2021-12-20] MEDS ORDERED: cloNIDine HCL 0.1 MG TABLET PO PRN (03:27)
[2021-12-20] MEDS ORDERED: methaDONE HCL 10 MG TABLET (FOR DETOX USE ONLY) PO ONE (03:27)
[2021-12-20] MEDS: diazePAM 5 MG TABLET PO SCH ×4 (07:37→22:24)
[2021-12-20] MEDS: NICOTINE 21 MG/24 HOURS TOPICAL PATCH TD SCH (10:23)
[2021-12-20] MEDS: PRENATAL VITAMINS W/ FOLIC ACID TABLET (FP) PO SCH (10:23)
[2021-12-20] MEDS: diazePAM 5 MG TABLET PO PRN (14:20)
[2021-12-20 14:46] LABS: HEMATOCRIT 34.1 % (32.4-45.2); HEMOGLOBIN 11.3 GM/dL (10.7-15.3); MCH 27.1 pg (25.7-33.7); MCHC 33.1 g/dl (32.0-36.0); MEAN CELL VOLUME 82.1 fl (80-96); MEAN PLT VOLUME 8.6 fl (7.5-11.1); PLATELET COUNT 175 10^3/uL (134-434); RBC 4.15 M/mm3 (3.60-5.2); RDW 15.8 % (11.6-15.6)
[2021-12-20 14:58] LABS: CALCIUM 8.9 mg/dL (8.5-10.1)
[2021-12-20 14:59] LABS: BLOOD UREA NITROGEN 14.6 mg/dL (7-18)
[2021-12-20 15:03] LABS: BILIRUBIN,TOTAL 0.2 mg/dL (0.2-1); TOT PROT 6.1 g/dl (6.4-8.2)
[2021-12-20] MEDS: IBUPROFEN 400 MG TABLET (FP) PO PRN (17:33)
[2021-12-20] MEDS: MELATONIN 5 MG TABLETS PO SCH (22:23)
[2021-12-20] MEDS: MIRTAZAPINE 15 MG TABLET (FP) PO SCH (22:23)
[2021-12-20] MEDS: THIAMINE HCL 100 MG TABLET (FP) PO SCH (22:23)
[2021-12-21] MEDS: diazePAM 5 MG TABLET PO SCH ×3 (06:59→22:07)
[2021-12-21] MEDS ORDERED: methaDONE HCL 10 MG TABLET (FOR DETOX USE ONLY) ONE (09:30)
[2021-12-21] MEDS: PRENATAL VITAMINS W/ FOLIC ACID TABLET (FP) PO SCH (10:19)
[2021-12-21] MEDS: NICOTINE 21 MG/24 HOURS TOPICAL PATCH TD SCH (10:20)
[2021-12-21] MEDS: diazePAM 5 MG TABLET PO PRN ×2 (12:08→17:51)
[2021-12-21] MEDS: ASPIRIN 81 MG CHEWABLE TABLETS PO SCH (14:51)
[2021-12-21] MEDS: ALBUTEROL SO4 HFA INHALER IH SCH ×4 (14:51→23:37)
[2021-12-21] MEDS: ACETAMINOPHEN 325 MG TABLET (FP) PO PRN (17:51)
[2021-12-21] MEDS: ROSUVASTATIN CA 5 MG TABLET PO SCH (22:07)
[2021-12-21] MEDS: THIAMINE HCL 100 MG TABLET (FP) PO SCH (22:08)
[2021-12-21] MEDS: MIRTAZAPINE 15 MG TABLET (FP) PO SCH (22:08)
[2021-12-21] MEDS: MELATONIN 5 MG TABLETS PO SCH (22:08)
[2021-12-21] MEDS: METHOCARBAMOL 500 MG TABLET PO PRN (22:10)
[2021-12-21] MEDS: IBUPROFEN 400 MG TABLET (FP) PO PRN (22:10)
[2021-12-22] MEDS: diazePAM 5 MG TABLET PO SCH ×2 (07:04→17:39)
[2021-12-22] MEDS: LOSARTAN POTASSIUM 50 MG TABLET PO SCH (07:07)
[2021-12-22] MEDS: CHLORTHALIDONE 25 MG TABLET PO SCH (07:07)
[2021-12-22] MEDS: ALBUTEROL SO4 HFA INHALER IH SCH ×5 (07:28→22:07)
[2021-12-22 08:06] LABS: SARS-CoV-2 NAA Not Detected (Not Detected)
[2021-12-22] MEDS ORDERED: methaDONE HCL 10 MG TABLET (FOR DETOX USE ONLY) PO ONE (10:00)
[2021-12-22] MEDS: PRENATAL VITAMINS W/ FOLIC ACID TABLET (FP) PO SCH (10:15)
[2021-12-22] MEDS: ASPIRIN 81 MG CHEWABLE TABLETS PO SCH (10:16)
[2021-12-22] MEDS: NICOTINE 21 MG/24 HOURS TOPICAL PATCH TD SCH (11:19)
[2021-12-22] MEDS: diazePAM 5 MG TABLET PO PRN ×2 (13:16→20:29)
[2021-12-22] MEDS: IBUPROFEN 400 MG TABLET (FP) PO PRN (17:41)
[2021-12-22] MEDS: THIAMINE HCL 100 MG TABLET (FP) PO SCH (22:06)
[2021-12-22] MEDS: ROSUVASTATIN CA 5 MG TABLET PO SCH (22:06)
[2021-12-22] MEDS: MIRTAZAPINE 15 MG TABLET (FP) PO SCH (22:07)
[2021-12-22] MEDS: MELATONIN 5 MG TABLETS PO SCH (22:07)
[2021-12-23] MEDS: ALBUTEROL SO4 HFA INHALER IH SCH ×7 (00:55→23:56)
[2021-12-23] MEDS: METHOCARBAMOL 500 MG TABLET PO PRN ×3 (03:50→17:37)
[2021-12-23] MEDS: IBUPROFEN 400 MG TABLET (FP) PO PRN ×3 (03:50→20:35)
[2021-12-23] MEDS ORDERED: diazePAM 5 MG TABLET PO ONE (06:00)
[2021-12-23] MEDS: LOSARTAN POTASSIUM 50 MG TABLET PO SCH (06:15)
[2021-12-23] MEDS: CHLORTHALIDONE 25 MG TABLET PO SCH (06:15)
[2021-12-23] MEDS ORDERED: methaDONE HCL 10 MG TABLET (FOR DETOX USE ONLY) ONE (10:12)
[2021-12-23] MEDS: ASPIRIN 81 MG CHEWABLE TABLETS PO SCH (10:24)
[2021-12-23] MEDS: PRENATAL VITAMINS W/ FOLIC ACID TABLET (FP) PO SCH (10:24)
[2021-12-23] MEDS: NICOTINE 21 MG/24 HOURS TOPICAL PATCH TD SCH (10:25)
[2021-12-23] MEDS: ACETAMINOPHEN 325 MG TABLET (FP) PO PRN (17:36)
[2021-12-23] MEDS: MIRTAZAPINE 15 MG TABLET (FP) PO SCH (22:15)
[2021-12-23] MEDS: THIAMINE HCL 100 MG TABLET (FP) PO SCH (22:15)
[2021-12-23] MEDS: MELATONIN 5 MG TABLETS PO SCH (22:15)
[2021-12-23] MEDS: ROSUVASTATIN CA 5 MG TABLET PO SCH (22:15)
[2021-12-24] MEDS: ALBUTEROL SO4 HFA INHALER IH SCH ×5 (04:20→21:43)
[2021-12-24] MEDS: METHOCARBAMOL 500 MG TABLET PO PRN ×3 (07:04→22:19)
[2021-12-24] MEDS: IBUPROFEN 400 MG TABLET (FP) PO PRN ×2 (07:04→19:31)
[2021-12-24] MEDS: LOSARTAN POTASSIUM 50 MG TABLET PO SCH (07:04)
[2021-12-24] MEDS: CHLORTHALIDONE 25 MG TABLET PO SCH (07:29)
[2021-12-24] MEDS ORDERED: methaDONE HCL 10 MG TABLET (FOR DETOX USE ONLY) PO ONE (10:00)
[2021-12-24] MEDS: ASPIRIN 81 MG CHEWABLE TABLETS PO SCH (10:24)
[2021-12-24] MEDS: PRENATAL VITAMINS W/ FOLIC ACID TABLET (FP) PO SCH (10:24)
[2021-12-24] MEDS: ACETAMINOPHEN 325 MG TABLET (FP) PO PRN (10:26)
[2021-12-24] MEDS: NICOTINE 21 MG/24 HOURS TOPICAL PATCH TD SCH (10:45)
[2021-12-24] MEDS ORDERED: LIDOCAINE 5% TOPICAL PATCH TP ONE (14:00)
[2021-12-24] MEDS ORDERED: LIDOCAINE PATCH REMOVAL MC SCH (22:00)
[2021-12-24] MEDS: MIRTAZAPINE 15 MG TABLET (FP) PO SCH (22:18)
[2021-12-24] MEDS: ROSUVASTATIN CA 5 MG TABLET PO SCH (22:18)
[2021-12-24] MEDS: MELATONIN 5 MG TABLETS PO SCH (22:18)
[2021-12-24] MEDS: THIAMINE HCL 100 MG TABLET (FP) PO SCH (22:18)
[2021-12-25] MEDS: ALBUTEROL SO4 HFA INHALER IH SCH ×3 (00:10→09:29)
[2021-12-25] MEDS: LOSARTAN POTASSIUM 50 MG TABLET PO SCH (06:11)
[2021-12-25] MEDS: METHOCARBAMOL 500 MG TABLET PO PRN (06:11)
[2021-12-25] MEDS: CHLORTHALIDONE 25 MG TABLET PO SCH (06:11)
[2021-12-25] MEDS: IBUPROFEN 400 MG TABLET (FP) PO PRN (06:11)
[2021-12-25 08:55] VITALS: BP 110/86; PULSE 100; TEMP 98.1
[2021-12-25] MEDS: PRENATAL VITAMINS W/ FOLIC ACID TABLET (FP) PO SCH (09:24)
[2021-12-25] MEDS: ASPIRIN 81 MG CHEWABLE TABLETS PO SCH (09:29)
[2021-12-25] MEDS: NICOTINE 21 MG/24 HOURS TOPICAL PATCH TD SCH (10:34)
== END 2021-12-25 10:58 | disposition other institution (70) | DRG 773 ==
LOC: YASAS 01:31 → Y3N 03:58
PROVIDERS: ADMIT Allergy & Immunology; ATTEND Allergy & Immunology
PROC: HZ2ZZZZ Detoxification Services for Substance Abuse Treatment (ICD-10-PCS; principal; 2021-12-20)
DX: F11.23 Opioid dependence with withdrawal (principal); F10.230 Alcohol dependence with withdrawal, uncomplicated; F13.230 Sedative, hypnotic or anxiolytic dependence with withdrawal, uncomplicated; F17.210 Nicotine dependence, cigarettes, uncomplicated; F19.24 Other psychoactive substance dependence with psychoactive substance-induced mood disorder; E78.5 Hyperlipidemia, unspecified; I25.10 Atherosclerotic heart disease of native coronary artery without angina pectoris; I10 Essential (primary) hypertension; G47.00 Insomnia, unspecified; J44.9 Chronic obstructive pulmonary disease, unspecified; D50.9 Iron deficiency anemia, unspecified; Z86.19 Personal history of other infectious and parasitic diseases; Z59.00 Homelessness unspecified
CPT/HCPCS: 36415; 70450-TC; 72125-TC; 73030-TC-RT-FY; 80053; 82947; 83036; 85027; 86780; 93005; 93010; 99281-25; C9803-CS; U0003; U0005